=== PATIENT | male | born 1985 | race Caucasian/White ===

== ENCOUNTER → 2018-09-07 | Outpatient (CLI) | payer OTHER ==
[~2018-09-07] MED LIST: 0.9 % SODIUM CHLORIDE 10 ML DISP.SYRIN. ID ONE; CONTRAST GIVEN. MC PRN; GADOBUTROL 7.5 MMOL/7.5 ML VIAL INT ART ONE; IOHEXOL 300 MG/ML 50 ML VIAL. INT ART ONE; LIDOCAINE 1% Multi-Dose 20 ML VIAL. ID ONE
--- NOTE | 2018-09-07 15:05 | KCIC ---
MR arthrogram of the right shoulder Indication: Right chronic shoulder pain and limited range of motion. Chronic labral tear. Technique: Intra-articular contrast injected into the glenohumeral joint and is reported separately. Routine 4 plane sequences were obtained, including ABER positioning. FINDINGS: Artifact: No significant image degradation. Acromioclavicular joint: Mildly degenerative. Minimal undersurface mass effect. Rotator cuff: * Supraspinatus-infraspinatus tendon: Intact * Subscapularis tendon: Intact * Muscle bulk: Within normal limits * Subacromial subdeltoid bursa: Trace fluid. No siginificant contrast accumulation. Glenohumeral joint and labrum: Tear of the anteroinferior labrum and extending through the posteroinferior labrum. Minimal heterogeneity the adjacent inferior glenoid articular cartilage. Biceps tendon: Intact Bones: No lesion or acute fracture. Soft tissue: No acute findings. Impression: Anteroinferior through posterolateral inferior labral tear. Mild irregularity of the adjacent inferior glenoid articular cartilage compatible with chondromalacia versus small tear. Electronically signed by: Richard Aguilar MD (09/07/2018 3:02 PM) [id number]
--- NOTE | 2018-09-07 17:20 | KCIC ---
PROCEDURE: Right shoulder injection using fluoroscopic guidance, prior to MR. HISTORY: Shoulder pain. TECHNIQUE: The procedure was explained to the patient as were potential risks, including among others infection, bleeding or allergic reaction. All questions were answered. Informed written and verbal consent was obtained. The shoulder was prepped and draped in the usual sterile manner. Following administration of local anesthetic, a 22-gauge needle was advanced into the anterior shoulder. Following negative aspiration, 12 cc of a solution of 5cc Omnipaque-300 contrast, 5 cc 1% lidocaine, 10 cc normal saline, and 0.1 cc gadolinium was injected without difficulty. The needle was removed. There was good hemostasis at the injection site. The patient left in stable condition without immediate complication. A single spot image is obtained. FLUOROSCOPY TIME:?21 seconds Electronically signed by: Richard Aguilar MD (09/07/2018 5:17 PM) [id number]
== END | disposition home or self-care (01) ==
LOC: KCIC 13:17
PROVIDERS: ATTEND Orthopaedic Surgery
DX: S43.491A Other sprain of right shoulder joint, initial encounter (principal); M19.011 Primary osteoarthritis, right shoulder; X58.XXXA Exposure to other specified factors, initial encounter; Y93.89 Activity, other specified; Y92.89 Other specified places as the place of occurrence of the external cause; Y99.8 Other external cause status
CPT/HCPCS: 23350; 73040; 73222; A9585; Q9967; 20610